=== PATIENT | male | born 1985 ===

== ENCOUNTER 2025-06-19 13:47 | Outpatient (AMB) | payer OTHER, SELFPAY ==
--- NOTE | 2025-06-19 13:53 | A.SPINEOV_ITS ---
Intake Visit Reasons: 2 herniated disc/cervical Intake Note: Mr. Campos is here today c/o neck pain. MRI done @ [facility]. [employer] Detail Required: No Assessment & Plan Assessment & Plan (1) Cervical radiculopathy: Code(s): M54.12 - Radiculopathy, cervical region Category: Medical Plan This is a very nice 40-year-old gentleman self-referred to the office today for evaluation of acute onset of right arm pain which started about a month or more ago. He does not recall any specific event that set it off. It started with neck pain then gradually began radiating down into his right arm into his index finger. His index finger is now numb. He is also losing strength in the right arm when he is trying to lift anything. He went to an local urgent care and was given steroids, muscle relaxers and meloxicam. It was recommended he follow-up at [facility], but there next booking was more than a few months away so he found us online and came in for a visit. The patient reports the pain is severe and unrelenting. He is having a hard time sleeping. He has to get up and constantly move around and change positions. He went to a chiropractor, but after a brief evaluation, they examined him and said it was too dangerous to do any chiropractic work and so he was sent away. He has had no physical therapy or injections. He has an MRI done at [facility] showing severe degenerative disc disease with disc herniation on the right at C5-6. PMH: He is reasonably healthy, he has history of a hip surgery as a child, hernia repair few years ago but denies any systemic disease, cardiopulmonary issues, liver renal disease, major abdominal surgery, bleeding disorders, blood clots, infections or other medical problems. Social hx: He smokes about a half a pack a day or more, smokes marijuana daily but does not drink any alcohol Medications: Currently taking Flexeril, meloxicam. Allergies: None Physical exam: Awake alert oriented, very uncomfortable, positive Spurling sign, biceps examination reveals 4-5 weakness, rest of his motor examination is intact however somewhat limited secondary to pain with any attempts at resistance. He has an absent biceps reflex. No Chris's sign. Rest of his reflexes are normal. Imaging review: Cervical MRI done at [facility] reveals severe disc collapse at C5- 6, there is a disc herniation on the right at C5-6 causing severe compression of the right C6 nerve. There some other milder degenerative changes around this level, but nothing significant. Impression: 40-year-old male presents with acute C6 radiculopathy radiating from his neck down into his arm with numbness of his index finger with a large disc herniation at C5-6 on the right. He is demonstrating weakness of his right arm with numbness in the loss of reflex at the biceps. I am concerned he is developing potentially permanent neurological injury on the nerve. I tent atively set him up for an anterior cervical fusion on July 13. I am going to review the images with Dr. Torrez but I think he will agree with me that in this situation, we should expedite surgery. I told the patient should his arms start to get any weaker, call me right away and I can add him on sooner. The patient was given risk and benefits of surgery including but not limited to infection, hematoma, nerve injury, durotomy, weakness, persistent pain. We discussed that if undergoing anterior cervical fusion there may be trachea or esophageal injury, hoarseness, or difficulty swallowing. There is a risk of pseudoarthrosis or instrumentation failure if undergoing cervical fusion. We also reviewed the option to continue with conservative treatment and patient wishes to proceed with surgery. They are aware they should stop NSAIDs 7 days prior to surgery. All questions were answered to the best of our ability. If there is anything about this patient's medical history that we have overlooked or concerns you have about us proceeding with surgery we would appreciate any input you can offer Thank you for allowing us to care for your patient. The total time spent with this visit with this patient was 45 minutes reviewing history, physical exam, cervical MRI imaging review, and implementation of treatment plan or further diagnostic testing Jaquan Torrez MD,PhD [facility] Medications: New cyclobenzaprine 10 mg PO TID PRN 30 tabs 0RF muscle spasm gabapentin 300 mg PO TID 90 caps 11RF Coding Level of Care Code New Pt Level 4 (74138) Diagnoses Cervical radiculopathy M54.12
== END 2025-06-19 15:41 | disposition home or self-care (01) ==
LOC: HO.HNS 13:48
PROVIDERS: Visit Provider Physician Assistant
DX: M54.12 Radiculopathy, cervical region (principal)
CPT/HCPCS: 99204

== ENCOUNTER 2025-07-13 10:04 | Day surgery (SDC) | payer OTHER, SELFPAY ==
[2025-07-05 10:42] VITALS: BMI 24.3
--- NOTE | 2025-07-05 13:16 | P.CONAN_ITS ---
Documented by User: Karli Estrada NP 07/10/25 14:15 HPI - Anesthesia Eval Consult details Narrative: 40yo M for Ant Cerv Discectomy w/ fusion, 07/13/25 [facility] Active Problems Active Problems: All Active Problems Cervical radiculopathy (Acute) Past Medical History Medical History Smoker Back pain Numbness and tingling in right hand Surgical History Surgical History History of hip surgery (1995) History of left inguinal hernia repair (12/2019) Social History Social History (Updated 07/05/25 @ 10:44 by Heather Contreras RN) Household Members: Significant Other Housing: Apartment Are you a primary career coordinator to a significant other at home: No Do you presently have visiting nurse or other home services: No Patient Tobacco Use Status: Current everyday Tobacco user Tobacco use type: Cigarette Cigarettes Per Day: 10 Use of substances other than those prescribed or required for medical reasons: Yes Substance Use Type: Marijuana Substance Use Frequency: Occasionally Have you been hit, kicked, punched, or otherwise hurt by someone within the past year? If so, by whom?: No Are you DNR?: No Advance Directives: No Advance Directives Information Provided: Yes Advance Directives on File: No Healthcare Proxy: No Poor oral hygiene: No Meds Allergies Allergy/AdvReac Type Severity Reaction Status Date / Time No Known Allergies Allergy Verified 07/13/25 10:19 Exam Height,Weight and Vital Signs: Height 6 ft 6 in Weight 95.254 kg Assessment and Plan Assessment Anesthesia Assessment: Chart Reviewed Documented by User: Coleen Rainey MD 07/13/25 10:32 PMFSH Past Medical History Medical History Smoker Back pain Numbness and tingling in right hand Family History Family history of problems with anesthesia: No Surgical History Surgical History History of hip surgery (1995) History of left inguinal hernia repair (12/2019) History of Problems with Anesthesia: No Social History Social History (Updated 07/05/25 @ 10:44 by Heather Contreras RN) Household Members: Significant Other Housing: Apartment Are you a primary career coordinator to a significant other at home: No Do you presently have visiting nurse or other home services: No Patient Tobacco Use Status: Current everyday Tobacco user Tobacco use type: Cigarette Cigarettes Per Day: 10 Use of substances other than those prescribed or required for medical reasons: Yes Substance Use Type: Marijuana Substance Use Frequency: Occasionally Have you been hit, kicked, punched, or otherwise hurt by someone within the past year? If so, by whom?: No Are you DNR?: No Advance Directives: No Advance Directives Information Provided: Yes Advance Directives on File: No Healthcare Proxy: No Poor oral hygiene: No Meds Allergies Allergy/AdvReac Type Severity Reaction Status Date / Time No Known Allergies Allergy Verified 07/13/25 10:19 Exam Airway Mallampati Class: II (cracked tooth bottom left) TM Dist: >3cm Neck ROM: Limited Heart: rrr Lungs: cta Assessment and Plan Assessment Anesthesia Assessment: Anesthesia Plan Discussed Final Anesthetic Review Family History of Problems with Anesthesia: No History of Problems with Anesthesia: No NPO: Yes ASA Class: II Final Preanesthetic Review: No Changes in Pt Med Stat, Meds/Allgs Chart Reviewed and Consent Obtained/Reviewed Patient Risk: Low Procedure Risk: Intermediate Anesthetic Plan Anesthetic Plan: GA Disposition: Standard PACU
[2025-07-13] VITALS (12 sets, daily range): BP systolic 134–160; BP diastolic 78–100; PULSE 58–81; RESP 12–19; TEMP 36.1–36.7; O2SAT 96–100; BMI 25.0
--- NOTE | ~2025-07-13 | FL_ITS ---
EXAMINATION: FL GUIDANCE ONLY HISTORY: C5-6 ACDF COMPARISON: None available. TECHNIQUE: Fluoroscopy time: 3.0 seconds. Cumulative Dose: 0.3729 mGy. DAP: 0.1242 Gycm2 Images: 2. FINDINGS: Fluoroscopic spot films of the cervical spine demonstrate anterior cervical disc fusion at C5-6. FL/FL guidance in OR IMPRESSION: Fluoroscopy during procedure. Please see procedure report for additional information. Electronically signed by: Demond Bryant MD 07/13/2025 02:41 PM EDT
[2025-07-13] MEDS: Lactated Ringers 1,000 ML 100 ML IVCONT (10:38)
--- NOTE | 2025-07-13 11:05 | MHC.SHP ---
Pre-Procedural Eval Section A - 24 Hr Update-Section A only Date of Service: 07/13/25 The patient is an INPATIENT: No Section B - Complete if H&P > 30 days Chief Complaint: Radiculopathy, cervical region Allergies: Allergies Allergy/AdvReac Type Severity Reaction Status Date / Time No Known Allergies Allergy Verified 07/13/25 10:19 Review of Systems Sugical H&P ROS: Negative: Constitution, Cardiovascular, Respiratory, Neurological, Psychiatric, Hem-Onc, Allergic/Immunologic, Gastrointestinal, Genitourinary, Musculoskeletal, Integumentary, Endocrine and Eyes/Ears/Nose/Throat Exam Surgical H&P Exam: Normal: HEENT, Normal: Heart, Normal: Lungs, Normal: Extremities, Normal: Abdomen, Normal: Skin and Normal: Neurological (Wake, alert) Plan Diagnosis/Plan: Unchanged Anterior diskectomy and fusion C5-6 Time Spent With Patient Time: Total time managing care of this patient today _ 5 ___ minutes.
--- NOTE | 2025-07-13 14:12 | W.PM.OPN ---
Operative Note Operative Note Date of Service: 07/13/25 Narrative: Preoperative Diagnosis: Cervical radiculopathy, right side Procedure: C5-6 Anterior discectomy, arthrodesis and implantation cage ; C5-6 anterior instrumentation ; local autograft; microscope Informed Consent was obtained for this operation. I have explained the nature, purpose and benefits of the operation. I have discussed the risks and benefit of the operation including possible complications or adverse events with patient/family. Alternative(s) were discussed with the patient with their relative benefits and risks as well as the consequences of not accepting the operation were included in obtaining consent. Surgeon: INDIGO UGARTE MD, PHD Procedure Assisted By: MARY Hernandez Description of Procedure: This 40-year-old male is suffering from right cervical radiculopathy. MRI shows severe degenerative disc disease at C5-6 with osteophyte formation causing spinal cord compression and bilateral foraminal stenosis. The patient was offered an anterior diskectomy and fusion The procedure complications were explained. The patient was consented. The patient was brought to the operating room and endotracheally intubated. The patient was put in supine position with slight extension of the neck. Prep and drape was done followed by timeout. A mid cervical incision was made followed by opening of the platysma. The prevertebral fascia was reached following the natural planes while the physician assistant program director provided manual retraction. The prevertebral fascia was opened to expose the disc space. A spinal needle was placed in the disk space to confirm the correct level with xray. The longus colli muscles were released bilaterally and a self retaining retractor was inserted. Two Howe pins were placed in the C5 and C6 vertebral bodies and distraction was give over the interspace. The discectomy was completed toward the posterior annulus of the disc. The microscope was brought in. The remainder of the discectomy was completed. The hypertrophied posterior ligament was opened and resected to expose the underlying dura. Large compressive steophytes were resected from the body of C5 and C6 to decompress the spinal cord and saved for autograft. Bilateral foraminotomies were done. Severe right C6 foraminal stenosis was present and relieved. A nerve hook could be passed over the nerve root , a sign of adequate decompression. The endplates were prepared after which a 6 mm cage filled with autograft was inserted into the disc space. A separate attached plate was locked down with 2 x 14 mm screws as anterior instrumentation. Final x-rays in AP and lateral projection showed a satisfactory position of the implant. The physician assistant program director took over. The Howe pin was removed. Hemostasis was done. He closed the incision in 2 layers with a 3-0 Vicryl. Steri-Strips used to approximate incision. An OpSite with Tegaderm was used to cover the incision. All sponge and needle counts were correct. Patient was extubated and transported in stable is to recovery room. Anesthesia: General Estimated Blood Loss (ml): 25 Duration of Surgery: 1 hour 45 minutes Postoperative Plan: Discharge home Complications: None
--- NOTE | 2025-07-13 14:31 | PM.DS ---
DS: Providers Provider Date of Service: 07/13/25 Date of discharge: 07/13/25 Primary care physician: Unknown Physician DS: Summary Time Attestation Discharge Coordination Time (in mins): 12 Quality: Safe Use of Opioids Does Pt have an Active Cancer Diagnosis on the Problem List?: No Quality: Stroke Does the patient have a stroke diagnosis?: No Physical Exam Vital Signs: Vital Signs: Last Vital Signs Temp 98.1 F 07/13/25 10:54 Pulse 81 07/13/25 10:54 Resp 18 07/13/25 10:54 BP 137/78 07/13/25 10:54 Pulse Ox 97 07/13/25 10:54 O2 Del Method Room Air 07/13/25 10:54 BMI result Body Mass Index 25.0 Discharge Plan Discharge Patient Disposition: Home, Self-Care Referrals: Physician,Unknown J [Primary Care Provider, Medical] - 1 Week Discharge Medications: New oxycodone 5 mg tablet 5 mg PO Q6H PRN (Reason: pain) Qty: 20 0RF Rx Instructions: Partial Fill upon patient request. Continued gabapentin 300 mg capsule 300 mg PO TID Qty: 90 11RF No Action cyclobenzaprine 10 mg tablet 10 mg PO TID PRN (Reason: for muscle spasm) Qty: 30 0RF Discharge Orders: Discharge Order (Routine); Ordered 07/13/25 Ordered By: Armani Storey Diet: Advance to usual diet Activity on Discharge: As tolerated Activity Restrictions/Additional Instructions: After your spinal surgery we ask you to observe the following restrictions/guidelines: Activity: It is normal to feel some discomfort as you increase your activity, but that will improve with time. We ask you avoid heavy lifting or acitivities that cause pain. As a general rule, 8lbs is a safe limit for lifting right after surgery. Walk as much as you feel comfortable but not to exhaustion. You will feel extra tired the first few days after surgery. Stay well hydrated. It is OK to walk up and down stairs You may return to driving when you are off narcotics (such as vicodin, oxycodone, dilaudid, etc), and you are back to normal functional capacity. If you have any concerns please check with office before driving. Return to work is specific to each patient and each surgery, so please speak with your doctor/PA at first follow up. Please bring paperwork such as FMLA at that time if you need it filled out. Medications: We recommend you take 500mg Tylenol every 4 hours for the first week after surgery, if you do not have any liver issues and can tolerate this medication. Do not exceed 4,000mg daily. We also recommend you take Ibuprofen 600mg every 8 hours for the first week after surgery starting on post op day 1, if you do not have any kidney or sugar control issues and can tolerate this medication. Do not exceed 2,000mg daily. We will give you a short supply of narcotics after surgery (usually one weeks worth). If you need more please call the office but do not use more than prescribed. You will need to give our office 48 hours notice if you need narcotics refilled and we do not fill narcotics on weekends or evenings. If you are on a narcotic, it is a good idea to take a stool softener such as colace or senna to avoid constipation If you take blood thinner such as aspirin, Plavix, Coumadin, Effient, Eliquis etc for conditions such as Afib, DVT, Pulmonary embolus, coronary disease, stents etc please speak with your surgeon about specific details as to when you can resume these medications. You can resume NSAIDs on post op day 1 (eg: Motrin, Naproxen, etc). Follow up: Please call the office, , after surgery to arrange a 3 week follow up for wound check. Wound Care: You may remove your dressing on the first day after surgery. ?You may ?leave open to air. Please do not remove the steri strips underneath. they will fall off on their own in one week. IT IS NORMAL FOR THE WOUND TO OOZE OR BE BLOODY FOR A FEW DAYS AFTER SURGERY. ?IF THIS HAPPENS JUST PLACE NEW DRESSING OVER IT TO AVOID STAINING CLOTHES. You may shower on post op day # 1 We ask that you do not let the water soak the wound. If it does get wet, just towel dry lightly. Please do not scrub your incision or place any type of chemical/ointment on the wound. No tub baths, pools or jacuzzis for one month. If you have any leaking or redness from your wound, or fevers, please call the office. Print Language: Greenlandic Discharge Date/Time: 07/13/25 16:30
[2025-07-13] MEDS: oxyCODONE HCl Immed Release 5 MG TABLET PO (14:45)
== END 2025-07-13 16:30 | disposition home or self-care (01) ==
PROVIDERS: Visit Provider Neurological Surgery
PROC: (CPT 22551; principal; 2025-07-13 12:40)
DX: M50.122 Cervical disc disorder at C5-C6 level with radiculopathy (principal); M48.02 Spinal stenosis, cervical region; M79.601 Pain in right arm; R20.0 Anesthesia of skin; Z79.899 Other long term (current) drug therapy; Z98.890 Other specified postprocedural states; F17.210 Nicotine dependence, cigarettes, uncomplicated
CPT/HCPCS: 22551; 22853; 20936; 22845; C1713; C1889; J0131; J0690; J1100; J2003; J2250; J2405; J2550; J2704; J3010

== ENCOUNTER → 2025-07-13 10:04 | Outpatient (BNV) | payer OTHER, SELFPAY | PROVIDERS: Visit Provider Neurological Surgery | DX: M54.12 Radiculopathy, cervical region (principal) | CPT/HCPCS: 20936; 22551; 22845; 22853; 99499 ==

== ENCOUNTER 2025-08-07 14:19 | Outpatient (AMB) | payer OTHER, SELFPAY ==
--- NOTE | 2025-08-07 14:39 | HO.SPINEOV ---
Intake Visit Reasons: 1st post op Intake Note: Ms. Campos is here today for her 1st post op. Test Driller Required: No Allergies No Known Allergies Allergy (Verified 07/13/25 10:19) Assessment & Plan Assessment & Plan (1) S/P cervical spinal fusion: Code(s): Z98.1 - Arthrodesis status Category: Medical Plan Procedure: C5-6 ACDF Antony comes in today for his 1st postoperative visit after hacing C5-[address] Torrez a few weeks ago. Overall he reports that his symptoms have very much so improved since his surgery. He is very satisfied with his operation. He states that his neck pain and shooting pains in the arms has essentially completely subsided. He does still have the occasional numbness to the pain of his right index finger, but states that this also feels like it is improving. We discussed the postoperative healing course and I answered any questions that he had in terms of activity/healing. No new neurological deficits. The patient ambulates well and rises from a seated position without difficulty. His anterior incision site is closed and well healing. I would like to follow up with Antony again in 6 weeks for his 2nd postoperative visit. At that time we will obtain a set of x-rays. Armani Torrez MD,PhD [facility] Coding Level of Care Code Global (76565) Diagnoses S/P cervical spinal fusion Z98.1
== END 2025-08-07 15:02 | disposition home or self-care (01) ==
LOC: HO.HNS 14:19
PROVIDERS: Visit Provider Physician Assistant
DX: Z98.1 Arthrodesis status (principal)
CPT/HCPCS: 99024